=== PATIENT | female | born 1985 | race Caucasian/White ===

== ENCOUNTER 2016-12-31 01:50 | Inpatient (IN) | payer OTHER ==
[~2016-12-31] VITALS: Ht 180.3 cm; Wt 138.3 kg
[~2016-12-31 01:50] MED LIST: CITA20TA11 PO; Docusate Sodium PO; HYDR-4003 PO; IBUP-1827 PO; IBUP800T28 PO; ONDA4TAB12 PO; OXYC1TAB24 PO; PNV1TABL57 PO
[2016-12-31] MEDS ORDERED: Sodium Chloride LOK Flush 10 mL Syringe IVFLUSH PRN (19:10)
[2016-12-31] MEDS ORDERED: Hemorrhage Kit, Post Partum XX ONE (19:10)
[2016-12-31] MEDS ORDERED: Carboprost 250 mCg/mL Inj IM PRN (19:10)
[2016-12-31] MEDS ORDERED: Ondansetron 2 mg/mL 2 mL Inj IVPUSH PRN (19:10)
[2016-12-31] MEDS ORDERED: Methylergonovine 0.2 mg/mL Inj IM PRN (19:10)
[2016-12-31] MEDS ORDERED: Oxytocin 10 Unit/mL Inj IM PRN (19:10)
[2016-12-31] MEDS ORDERED: Oxytocin 30 Units/500 mL LR 30 UNITS in IV Premix 1 EACH IV PRN (19:10)
[2016-12-31 19:40] LABS: Mean Corpuscular Hemoglobin 30.3 pg (27.0-35.0); Mean Corpuscular Volume 91.6 fL (81-100)
[2016-12-31] MEDS: Lactated Ringer's 1,000 ML IV PRN (22:29)
[2016-12-31] MEDS: Misoprostol 25 mCg/0.25 Tablet VAGINAL SCH (23:59)
--- NOTE | 2017-01-01 00:02 | HP ---
[address] [address] HISTORY AND PHYSICAL PATIENT: TACO LALA : 1985 MR#: [id number] ADMIT: 12/31/2016 JOB ID: [id number] DATE: 12/31/2016 CHIEF COMPLAINT: Induction of labor. HISTORY OF PRESENT ILLNESS: This is a 31-year-old, G8, P3-0-4-2 female who is presenting at 37 weeks gestational age for a planned induction of labor due to a history of a 37 week demise in her last as well as chronic hypertension. Her was complicated by the history of a 37 week IUFD in November 2015 which was thought to be related to a true knot with a negative workup. Other than this, as well as a failed 1 hour GTT with a normal 3 hour GTT, mild intermittent asthma, morbid obesity with a BMI of 40, and chronic hypertension on labetalol and baby aspirin. She presented on the evening of the for a planned induction of labor. The risks, benefits, and alternatives were discussed with her before this. PAST MEDICAL HISTORY: 1. Hypertension. 2. Mild intermittent asthma. 3. Anemia. PAST SURGICAL HISTORY: She has had a laparoscopic cholecystectomy. OBSTETRICAL HISTORY: She has had four missed abortions and one 37-week demise. She also had two full-term deliveries between 37 and 38 weeks of two male infants that were both large for gestational age, one weighing 8 pounds 8 ounces and the other weighing 9 pounds. SOCIAL HISTORY: She denies any tobacco, alcohol, or drug use. FAMILY HISTORY: Noncontributory. MEDICATIONS: 1. Baby aspirin 81 mg. 2. Labetalol 300 b.i.d. 3. Zofran 4 mg p.o. p.r.n. 4. vitamins. ALLERGIES: She has allergies to: 1. CEPHALEXIN. 2. CAT. 3. MOLD. 4. POLLEN. PHYSICAL EXAMINATION: This evening her blood pressure has been ranging between 130s to 150s over 60s to 80s. She has not had her labetalol this evening. Her heart rate is 83. Her temperature is 36.6. In general, she is awake, alert, oriented, in no acute distress lying comfortably in bed. Her abdomen is soft, nontender, nondistended. It is obese with size greater than dates. Our last growth ultrasound did show EFW of 28th percentile. That was completed on December 23, 2016. Her extremities show no tenderness. Trace lower extremity edema. I am unable to elicit reflexes. She has no clonus on examination. heart tones show 145 baseline, moderate variability, with accelerations present. Tocometry shows uterine irritability and rare contractions. On sterile vaginal exam, she is found to be 2 cm dilated, 50% effaced, and -3 station. On bedside ultrasound she is vertex. LABORATORY DATA: Her blood type is A positive. She is antibody screen negative. She is rubella immune. Varicella immune. Hep B surface antigen negative, RPR nonreactive, HIV negative, and GBS negative. Her white count at the time of admission is 10.7, her hemoglobin is 11.5, her platelets are 288. Her creatinine is 0.35, and her AST is 10 and ALT of 13. Her labs are otherwise within normal limits. ASSESSMENT AND PLAN: 1. This is a 31-year-old, G9, P3-0-4-2 female presenting at 37 weeks gestation for a planned induction of labor due to a history of a 37 week demise in her last as well as chronic hypertension. PLAN: Chronic hypertension. At this point in time, her blood pressures are mildly elevated. She will get her evening dose of labetalol. Her laboratory data that was collected on labor and delivery is within normal limits. We will continue to follow her, and if she does have severe range blood pressures, need for magnesium will be discussed further at that time. 2. Induction of labor. Her Vernon score this evening is 5. She is vertex in position. She is GBS negative. Given her nonfavorable cervix, induction will be started using Cytotec and when favorable this will be switched to Pitocin. Induction of labor consent has been signed with the patient on labor and delivery and all questions and concerns were answered.
[2017-01-01] MEDS: Lactated Ringer's 1,000 ML IV PRN ×3 (04:18→17:29)
[2017-01-01] MEDS ORDERED: Oxytocin 30 Units/500 mL LR Premix IV SCH (04:50)
[2017-01-01] MEDS: Misoprostol 25 mCg/0.25 Tablet VAGINAL SCH (08:16)
[2017-01-01] MEDS ORDERED: Lactated Ringer's 1,000 ML IV SCH (21:44)
[2017-01-01] MEDS ORDERED: Lactated Ringer's 500 ML IV ONE (21:44)
[2017-01-01] MEDS ORDERED: EPHEDrine Sulfate 50 mg/mL Inj IVPUSH PRN (21:45)
[2017-01-01] MEDS ORDERED: fentaNYL 2 mCg/mL-Bupiv 0.125% 100 ML EPIDURAL SCH (21:45)
[2017-01-01] MEDS ORDERED: Ondansetron 2 mg/mL 2 mL Inj IVPUSH PRN (21:45)
[2017-01-01] MEDS ORDERED: Atropine 1 mg/10 mL (Code) Syringe IVPUSH PRN (21:45)
--- NOTE | 2017-01-01 23:16 | PCM.HPANE ---
Patient Data Date of Service: January 01, 2017 (9) Surgeon Admitting Provider:Jessica Mcclain MD Attending Provider:Jessica Mcclain MD Primary Care Physician:Lyubov Harden MD Other Provider: Reason for Visit Induction INDUCTION Ht/WT & BMI Body Mass Index Allergies Coded Allergies: Cephalexin Monohydrate (Verified Allergy, Intermediate, RASH, 07/21/16) Past Anesthesia History Anesthesia History: Denies:: Abnormal Airway, Difficult Intubation Diabetes History Hx Diabetes?: No MRSA MRSA: No Medications Active Scripts Ondansetron ODT 4 Mg Tab.rapdis4 Mg PO QID PRN For Nausea #20 TABLET Prov:Tremaine Fontana MD 02/15/16 oxyCODONE-Acetaminophen 5-325 mg 1 Each Tablet1 Tab PO Q6H PRN For Pain #30 TABLET Ref 0 Prov:Tremaine Fontana MD 02/15/16 Citalopram 20 Mg [id number] Mg PO DAILY #60 TABLET Ref 6 Prov:Stu Day MD 11/20/15 Ibuprofen 600 Mg [id number] Mg PO Q6H PRN For Mild Pain #30 TABLET Ref 1 Prov:Stu Day MD 11/20/15 [Docusate Sodium] 100 MG CAPSULE No Conflict Slern506 Mg PO BID PRN For Constipation #28 CAPSULE Ref 1 Prov:Stu Day MD 11/20/15 Ibuprofen 800 Mg Rbttta529 Mg PO Q6 PRN For Pain #30 TABLET Prov:Sasha Whittaker MD 12/08/13 Hydrocodone-Acetaminophen 5-325 mg 1 Tab Tablet1-2 Tab PO Q4-6H PRN For Pain # 15 TABLET Prov:Sasha Whittaker MD 12/08/13 Reported Medications PNV CMB#95/FERROUS FUMARATE/FA-Expunged Drug, (-Expunged Drug, Do Not Renew!)1 Each Tablet1 Each PO DAILY 08/22/12 History History of ENT Problems?: No HEENT History: Denies:: Abnormal Airway Difficult Intubation Denture Type: None Teeth Condition: Within Normal Limits Hx of Heart Problems?: No Cardiovascular History: Denies:: AICD Abdominal Aortic Aneurism Atrial Fibrillation Cardiac Surgery Chest Pain Congestive Heart Failure Coronary Artery Disease Edema Heart Murmur Hypertension Irregular Heartbeat Pacemaker Peripheral Vascular Rheumatic Fever Thrombophlebitis Valvular Heart Disease Hx of Respiratory Problem?: No Respiratory History: Denies:: Asthma COPD Chest Surgery Cough Dyspnea Emphysema Hemoptysis Oxygen Administration Pneumonia Pulmonary Embolism Tuberculosis Use of C-PAP Machine Use of Inhalers / NEBS Hx Neurologic Problems?: No Hx of GI Problems?: No Hx of Problems?: No HX of Peritoneal Dialysis: No Female Hx: Positive for:: Currently Hx Musculoskeletal Problems?: No Hx of Psycho/Social Problems?: No Hx Surgeries?: Yes (cholecystectomy) Hx Any Other Health Problems?: Yes Hx Diabetes: No Smoking Status: Never Smoker Stop/Bang Risk Assessment Category Category 1A: Patient has history of documented sleep apnea, and HAS NOT received any narcotic, sedative or anesthesia administration during this stay. Category 1B: Patient has history of documented sleep apnea, and HAS received any narcotic , sedative or anesthesia administration during this stay Category 2: Patient has SUSPECTED Obstructive Sleep Apnea, and HAS received any narcotic , sedative or anesthesia administration during this stay. Category 3: Patient has SUSPECTED Obstructive Sleep Apnea and HAS NOT received narcotic, sedative or anesthesia administration during this stay. Category 4: Outpatient in Procedural Areas with known sleep apnea or who screen positive for High Risk via the STOP/BANG questionnaire. Exam Exam General Appearance: Alert, Oriented X3, Cooperative, No Acute Distress HEENT/AIRWAY: MP 2 Lungs: Clear to Auscultation Heart: Exam Unremarkable Meds/Labs/Diagnostics Admission Meds Current Medications Oxytocin/Lactated Ringer's/Premix (Pitocin 30 Units/500 mL LR/ IV Premix) 500 ml @ 0 mls/hr Q0M IV Last administered on 01/01/17 05:59; Start 01/01/17 at 04 :50 Dinoprostone (Cervidil Vaginal Insert) 10 mg ONCE ONCE VAGINAL Last administered on 01/01/17 20:01; Start 01/01/17 at 19:40; Stop 01/01/17 at 19:42 ; Status DC Labs Test 12/31/16 19:30 12/31/16 19:36 12/31/16 20:14 White Blood Count 10.7th/mm3 (3.8-10.1) Red Blood Count 3.80mil/mm3 (3.90-5.20) Hemoglobin 11.5g/dL (12.0-15.6) Hematocrit 34.8% (35.0-46.0) Mean Corpuscular Volume 91.6fL (81-100) Mean Corpuscular Hemoglobin 30.3pg (27.0-35.0) Mean Corpuscular Hemoglobin Concent 33.0% (32.0-37.0) Red Cell Distribution Width 12.9% (12.3-15.4) Platelet Count 288bil/L (150-400) Sodium Level 134mEq/L (134-144) Potassium Level 3.9mEq/L (3.5-5.2) Chloride Level 96mEq/L (97-108) Carbon Dioxide Level 22mmol/L (18-29) Blood Urea Nitrogen 9mg/dL (6-20) Creatinine 0.35mg/dL (0.57-1.00) Estimat Glomerular Filtration Rate 311mL/min (>59) Glucose Level 91mg/dL (60-99) Calcium Level 8.6mg/dL (8.5-10.1) Total Bilirubin 0.2mg/dL (0.0-1.2) Aspartate Amino Transf (AST/SGOT) 10U/L (0-50) Alanine Aminotransferase (ALT/SGPT) 13U/L (0-32) Alkaline Phosphatase 67U/L (25-150) Total Protein 6.0g/dL (6.4-8.4) Albumin 3.3g/dL (3.4-5.0) Hold Urine Received (Received) Plan Impression Patient chart reviewed, patient interviewed and anesthestic plan with risks, benefits, and alternatives discussed, and informed consent obtained. ASA Physical Status: ASA3 Severe Disease Anesthetic Plan: Epidural Bene/Risks/Altern/Consents: Yes HP Complete Prior to Induction: Yes Girma Chahal MD January 01, 2017 23:16
[2017-01-02] MEDS ORDERED: Sodium Chloride LOK Flush 10 mL Syringe IVFLUSH SCH (00:30)
[2017-01-02] MEDS ORDERED: Witch Hazel-Glycerin Pads TOPICAL PRN (04:10)
[2017-01-02] MEDS ORDERED: Methylergonovine 0.2 mg/mL Inj IM PRN (04:10)
[2017-01-02] MEDS ORDERED: LANOlin HPA 7 Gm Ointment TOPICAL PRN (04:10)
[2017-01-02] MEDS ORDERED: Lactated Ringer's 1,000 ML IV SCH (04:10)
[2017-01-02] MEDS ORDERED: Carboprost 250 mCg/mL Inj IM PRN (04:10)
[2017-01-02] MEDS ORDERED: Benzocaine (Dermoplast) 20% 60 Gm Spray TOPICAL PRN (04:10)
[2017-01-02] MEDS ORDERED: Oxytocin 10 Unit/mL Inj IM PRN (04:10)
[2017-01-02] MEDS ORDERED: Hemorrhage Kit, Post Partum XX ONE (04:10)
[2017-01-02] MEDS ORDERED: Oxytocin 30 Units/500 mL LR 30 UNITS in IV Premix 1 EACH IV PRN (04:10)
[2017-01-02] MEDS ORDERED: diphenhydrAMINE 25 mg Capsule PO PRN (06:30)
--- NOTE | 2017-01-02 08:53 | PROG NOTE ---
[address] [address] PROGRESS NOTE PATIENT: TACO LALA : 1985 MR#: [id number] ADMIT: 12/31/2016 JOB ID: [id number] DATE: 01/01/2017 SUBJECTIVE: 31-years old 8 para 3-0-4-[address] Harden at 36 weeks 2 days gestational age ( by six weeks and [address] [facility] with a final due date of January 27, 2017 ) for induction of labor secondary to: 1. History of IUFD at 37 weeks. M consult recommended induction of labor at 36-37 weeks. 2. Chronic hypertension currently controlled with labetalol 300 mg b.i.d. The patient had her induction started as the following: Cytotec #1 at 0003 this a.m. followed by Pitocin at 6:10 a.m. Pitocin was then discontinued at 7:07 a.m. This was followed by Cytotec #2 at 8:14 a.m. Then Pitocin was restarted at 1357 today and was discontinued at 1716 for a category 2 heart tracing. Category 1 heart tracing was restored with position changes, oxygen, and IV hydration. heart tracing currently is at the baseline of 125 beats per minute, positive accelerations, no decelerations, moderate variability, category 1 heart tracing. Vital signs are 140/78 for blood pressure. Respirations are 18, pulse is 77, temperature 36.8 degrees centigrade. Cervical examination 3 cm dilated, cervix 50% effaced, -5 station, vertex presentation, mid position, medium consistency with a Vernon score of 5. Intrauterine pressure catheter and scalp electrode are in place. Discussed with the patient options of further cervical ripening considering that her Vernon score is 5 versus restarting Pitocin and observing tracing closely for any recurrence of category 2 heart tracing. The patient preferred to proceed with further cervical ripening with Cervidil as she had good experience with prior induction of labor with Cervidil. Cervidil #1 was inserted at 8 p.m. by myself. ASSESSMENT AND PLAN: The patient is a 31-year-old 8, para 3-0-4-2 at 36 weeks 2 days gestational age by 6 week and 3 days ultrasound. 1. continue with induction of labor. Cervidil #1 inserted at 8 p.m. 2. Category 1 heart tracing restored, continue internal monitoring. 3. GBS cultures negative. 4. Discussed intrapartum analgesia options. The patient is considering epidural. Anesthesia notified. 5. Chronic hypertension. Continue with labetalol 300 b.i.d. All the above discussed in details with the patient who agreed to the plan. ANTONIA
[2017-01-02] MEDS: Ascorbic Acid 500 mg Tablet PO SCH ×2 (09:07→19:01)
--- NOTE | 2017-01-02 15:57 | OP ---
[address] [address] OPERATIVE REPORT PATIENT: TACO LALA : 1985 MR#: [id number] ADMIT: 12/31/2016 JOB ID: [id number] DATE OF SURGERY: 01/02/2017 DELIVERY NOTE: PREOPERATIVE DIAGNOSIS(ES): A 31-year-old, 8, para 3-0-4-2, at 36 weeks and 3 days gestational age by six-week ultrasound, 1- admitted for induction of labor by Dr. Harden for history of prior IUFD at 37 weeks. Induction was recommended by [facility]. 2- Category 2 heart tracing was managed with intrauterine resuscitation measures including amnio infusion. Patien progressed to fully dilated, +3 station. POSTOPERATIVE DIAGNOSIS(ES): A 31-year-old, 8, para 3-0-4-2, at 36 weeks and 3 days gestational age by six-week ultrasound, 1- admitted for induction of labor by Dr. Harden for history of prior IUFD at 37 weeks. Induction was recommended by [facility]. 2- Category 2 heart tracing was managed with intrauterine resuscitation measures including amnio infusion. Patien progressed to fully dilated, +3 station. PROCEDURE: Spontaneous vaginal delivery. SURGEON: Jonathan Loza MD. ANESTHESIA: Epidural. ESTIMATED BLOOD LOSS: 200 cc. COMPLICATIONS: None. FINDINGS: Single viable male with Apgars 6/8/9. Weight still pending. Estimated blood loss 200 cc. PROCEDURE: The patient started to push efficiently. head delivered in left occiput anterior position followed by shoulders and rest of the body. Delayed cord clamping allowed for 60 seconds. Infant placed over mom's chest. cord clamped and cut. Placenta followed spontaneously. Upon inspection, it was noted to be intact with three-vessel cord centrally inserted. Inspection of the perineum revealed no lacerations, intact perineum. Bimanual exam at the end of the procedure confirmed firm uterine fundus with no blood clots or active bleeding observed. Patient tolerated the procedure well. Mom and baby recovering in a stable condition in labor and delivery room. Dr. Loza was present and scrubbed for the entire procedure. [facility] MED[facility] CENTERChristiano
[2017-01-02] MEDS: oxyCODONE-Acetamin 5-325 mg Tablet PO PRN (16:59)
[2017-01-03 07:18] LABS: Mean Corpuscular Hemoglobin 30.6 pg (27.0-35.0); Mean Corpuscular Volume 93.6 fL (81-100)
[2017-01-03] MEDS: Ascorbic Acid 500 mg Tablet PO SCH (07:59)
--- NOTE | 2017-01-03 09:32 | PCM.DIOB ---
Obstetrical Disch Instruction Date of Service: January 03, 2017 Dates of Hospitalization Date of Hospital Admission December 31, 2016 at 19:00 Providers Admitting Physician: Jessica Mcclain MD Primary Care Physician: Lyubov Harden MD Attending Physician: Jessica Mcclain MD Discharge Diagnosis Discharge Diagnosis vaginal delivery PPD1 Problems: Diet Discharge Diet: No restrictions Activity Discharge Activity-General: Pelvic Rest for 6 weeks, Try not to overdue, Be up and about, Balance rest and activity, No lifting >15 pounds for 2 weeks Dressing and Incisional Care Hygiene: May shower, NO bathtub, hot tub or whirlpool Additional Instructions Discharge Instructions Please call office if heavy vaginal bleeding, severe abdominal pain, foul smelling discharge, fever more than 100.4 or short of breath. Follow Up Plan Follow Up Plan 6 weeks at [facility] Follow-up appointment: Weeks (6) Call your provider for: Fever or Chills, Shortness of breath, Heavy vaginal bleeding, Excessive constipation, Vaginal discomfort, Red painful breasts Kathrin Castaneda MD January 03, 2017 09:32
[2017-01-03] MEDS ORDERED: IBUP-1827 PO (09:33)
[2017-01-03] MEDS: oxyCODONE-Acetamin 5-325 mg Tablet PO PRN (10:35)
[2017-01-03 14:09] VITALS: BP 107/52; PULSE 87; RESP 18
--- NOTE | 2017-01-05 07:47 | DIS ---
[address] [address] DISCHARGE SUMMARY PATIENT: TACO LALA : 1985 MR#: [id number] ADMIT: 12/31/2016 JOB ID: [id number] DIS: 01/03/2017 HOSPITAL COURSE: This is a 31-year-old female. s/p vaginal delivery. This is day one. She is doing well. Her pain is well controlled by p.o. medications. Voiding well. Ambulating well. Tolerated her regular diet. She is afebrile. Her pulse was in normal range. Blood pressure in normal range. Cardiac: RRR. No murmur. Pulmonary: Bilaterally clear. Abdomen is soft. Uterus: Well contracted, nontender. Extremities nontender. Lochia moderate to minimal. ASSESSMENT AND PLAN: A 31-year-old female, status post vaginal delivery. day one, doing well. Plan to discharge her home today. Instructions given that if there is heavy vaginal bleeding, severe abdominal pain, foul-smelling discharge, fever more than 100.4, she needs to call office or go to the emergency department for evaluation. She is instructed to come back to office for followup in six weeks. Motrin 600 mg, 30 pills given for pain management. MTDD
--- NOTE | 2017-01-05 15:19 | PATH ---
SURGICAL PATHOLOGY Attending Physician:Jonathan Loza MD CASE STATUS: Signed Out PATIENT NAME: TACO LALA PID: [id number] : 1985 DATE COLLECTED:01/02/2017 16:41 SPECIMEN: Placenta CLINICAL HISTORY: 1. PLACENTA FINAL DIAGNOSIS: 1.PLACENTA (246 GRAMS): MATURE CIRCUMVALLATE PLACENTA WITH NO EVIDENCE OF CHORIOAMNIONITIS OR FUNISITIS. ICD10 O43.119 GROSS DESCRIPTION: The specimen is received in formalin, labeled with the patient's name and consists of an intact circumvallate placenta and includes placental disc (246 g, 14.2 x 13.0 x 2.1 cm), umbilical cord (length-20.8 cm, diameter-1.5 x 0.8 cm) and membranes. The membranes are ruptured 3.8 cm from the free edge of the placenta and are semi-translucent. The umbilical cord is attached 5.2 cm from the edge of the placenta and contains 3 vessels. The surface is smooth and shiny with no evidence of meconium. The maternal surface is dark maroon with normal cotyledon formation. The placental disc is spongy with no hematomas, infarcts, nodules, masses, or lesions. Section code: (A) edge of placenta with membranes, umbilical cord; (B-D) placenta, 4 full thickness sections. 01/03/17 MICRO DESCRIPTION: See diagnosis. ICD-9 CODES: CPT CODES: 1: 68803 Electronically Signed Out Calvin Gordon MD [facility] Pathology [facility] [address], [place] [address] Technical component performed at [facility], [facility] [address], [place], [address]
== END 2017-01-03 14:34 | disposition home or self-care (01) | DRG 774 ==
LOC: FBC 19:00
PROVIDERS: ADMIT Obstetrics & Gynecology; ATTEND Obstetrics & Gynecology
PROC: 3E033VJ Introduction of Other Hormone into Peripheral Vein, Percutaneous Approach (ICD-10-PCS; 2017-01-01)
PROC: 3E0E7GC Introduction of Other Therapeutic Substance into Products of Conception, Via Natural or Artificial Opening (ICD-10-PCS; 2017-01-01)
PROC: 10E0XZZ Delivery of Products of Conception, External Approach (ICD-10-PCS; principal; 2017-01-02)
PROC: 10907ZC Drainage of Amniotic Fluid, Therapeutic from Products of Conception, Via Natural or Artificial Opening (ICD-10-PCS; 2017-01-02)
DX: O10.02 Pre-existing essential hypertension complicating childbirth (principal); Z3A.36 36 weeks gestation of pregnancy; O76 Abnormality in fetal heart rate and rhythm complicating labor and delivery; Z37.0 Single live birth

== ENCOUNTER 2017-04-03 05:55 | Day surgery (SDC) | payer OTHER ==
[2017-04-03] VITALS (12 sets, daily range): BP systolic 109–145; BP diastolic 57–85; PULSE 58–91; RESP 8–18; O2SAT 93–99
[~2017-04-03] VITALS: Ht 175.3 cm; Wt 129.7 kg
[~2017-04-03 05:55] MED LIST changes: -CITA20TA11 PO; -Docusate Sodium PO; -HYDR-4003 PO; -IBUP-1827 PO; -IBUP800T28 PO; +LABE300T PO; -ONDA4TAB12 PO; +[UNRECOGNIZED DRUG - OTHER] PO
[2017-04-03] MEDS ORDERED: Propofol 10,000 mCg/mL 20 mL Inj ONE (05:56)
[2017-04-03] MEDS ORDERED: Glycopyrrolate 0.2 MG/ML 1mL Inj ONE (05:56)
[2017-04-03] MEDS ORDERED: Succinylcholine Chloride 20 mg/mL 5 mL Inj ONE (05:56)
[2017-04-03] MEDS ORDERED: fentaNYL-PF 50 mCg/mL 2 mL Inj ONE (05:56)
[2017-04-03] MEDS ORDERED: Ondansetron 2 mg/mL 2 mL Inj ONE (05:56)
[2017-04-03] MEDS ORDERED: Rocuronium 10 mg/mL 5 mL Inj ONE (05:56)
[2017-04-03] MEDS ORDERED: Neostigmine 1 mg/mL 10 mL Inj ONE (05:56)
[2017-04-03] MEDS ORDERED: Dexamethasone 4 mg/mL Inj ONE (05:56)
[2017-04-03] MEDS: Lactated Ringer's 1,000 ML IV SCH ×2 (06:05→07:32)
[2017-04-03] MEDS ORDERED: PREN-54 PO (06:52)
[2017-04-03] MEDS ORDERED: IBUP200C PO (06:52)
[2017-04-03] MEDS ORDERED: MEDR150D9 IM (06:52)
[2017-04-03] MEDS ORDERED: LACT1CAP64 PO (06:52)
[2017-04-03] MEDS ORDERED: ONDA4TAB6 PO (06:52)
--- NOTE | 2017-04-03 06:58 | PCM.HPANE ---
Patient Data Date of Service: Apr 03, 2017 Surgeon Admitting Provider: Attending Provider:Jessica Mcclain MD Primary Care Physician:Ritchie Liz MD Other Provider:Madyson Saeed Anesthesia Reason for Visit Family Planning Ht/WT & BMI Height (Feet): 5 Height (Inches): 9.00 Weight (Kilograms): 129.700 Body Mass Index 42.00 Allergies Coded Allergies: amoxicillin (Verified Allergy, Severe, Thrush of mouth, 04/01/17) animal dander (Verified Allergy, Severe, Bad respiratory reaction, 04/01/17 ) Cephalexin Monohydrate (Verified Allergy, Intermediate, RASH, 04/01/17) Past Anesthesia History Anesthesia History: Denies:: Abnormal Airway, Anesthesia Reactions, Difficult Intubation, Fam Anesthesia Reaction, Fam Malignant Hypertherm, Malignant Hyperthermia Diabetes History Hx Diabetes?: No MRSA MRSA: No Medications Hypertension Medication: Yes Home Meds Incl Beta Charlene: Yes Date Beta Charlene Taken: Apr 03, 2017 Time Beta Charlene Taken: 0500 Active Scripts oxyCODONE-Acetaminophen 5-325 mg 1 Each Tablet1 Tab PO Q6H PRN For Pain #30 TABLET Ref 0 Prov:Tremaine Fontana MD 02/15/16 Reported Medications Ibuprofen 200 Mg Akyftgg182 Mg PO QID PRN For Pain Ref 0 04/03/17 Lactobacillus Rhamnosus R0011 (Probiotic Digestive Care)1 Each Capsule1 Each PO 04/03/17 Ondansetron (Zofran)4 Mg Tablet4 Mg PO Q4H PRN For Nausea 04/03/17 Medroxyprogesterone Acetate (Depo-Provera)150 Mg/1 Ml Knzsacu177 Mg IM [id number] 04/03/17 Vit #76/Iron,Carb/FA (Prenatabs Rx Tablet)1 Each Tablet1 Each PO 04/03/17 Labetalol 300 Mg Ettbqb045 Mg PO BID 04/01/17 Discontinued Reported Medications [samotidine] No Conflict Check20 Mg PO DAILY 04/01/17 PNV CMB#95/FERROUS FUMARATE/FA-Expunged Drug, (-Expunged Drug, Do Not Renew!)1 Each Tablet1 Each PO DAILY 08/22/12 Discontinued Scripts Ibuprofen 600 Mg Auvxyq657 Mg PO Q6H PRN For Mild Pain #30 TABLET Prov:Kathrin Castaneda MD 5/20/17 Ondansetron ODT 4 Mg Tab.rapdis4 Mg PO QID PRN For Nausea #20 TABLET Prov:Tremaine Fontana MD 02/15/16 Citalopram 20 Mg Rnjqnl40 Mg PO DAILY #60 TABLET Ref 6 Prov:Stu Day MD 11/20/15 Ibuprofen 600 Mg Wgadlk198 Mg PO Q6H PRN For Mild Pain #30 TABLET Ref 1 Prov:Stu Day MD 11/20/15 [Docusate Sodium] 100 MG CAPSULE No Conflict Frgqy368 Mg PO BID PRN For Constipation #28 CAPSULE Ref 1 Prov:Stu Day MD 11/20/15 Ibuprofen 800 Mg Wdrlti424 Mg PO Q6 PRN For Pain #30 TABLET Prov:Sasha Whittaker MD 12/08/13 Hydrocodone-Acetaminophen 5-325 mg 1 Tab Tablet1-2 Tab PO Q4-6H PRN For Pain # 15 TABLET Prov:Sasha Whittaker MD 12/08/13 History History of ENT Problems?: Yes HEENT History: Positive for:: Sinus Problem (related to allergy's) Denies:: Abnormal Airway Difficult Intubation Dysphagia Hearing Problem TMJ Denture Type: None Teeth Condition: Within Normal Limits Hx of Heart Problems?: Yes Cardiovascular History: Positive for:: Hypertension Denies:: AICD Abdominal Aortic Aneurism Atrial Fibrillation Cardiac Surgery Chest Pain Congestive Heart Failure Edema Heart Murmur Irregular Heartbeat Pacemaker Rheumatic Fever Thrombophlebitis Valvular Heart Disease Hx of Respiratory Problem?: No Respiratory History: Denies:: Asthma COPD Chest Surgery Cough Dyspnea Emphysema Hemoptysis Oxygen Administration Pneumonia Pulmonary Embolism Tuberculosis Use of C-PAP Machine Hx Neurologic Problems?: No Neurological History: Denies:: Alzheimer's Disease CVA Dementia Dizziness Headaches Multiple Sclerosis Parkinson's Disease Seizures TIA Hx of GI Problems?: No Hx of Problems?: No Genitourinary History: Denies:: HX of Hemodialysis Kidney Stones Urinary Tract Infection HX of Peritoneal Dialysis: No Female Hx: Denies:: Currently Problems with Breasts? Skin History: Denies:: History Skin Disorders? Pressure Ulcers Hx Musculoskeletal Problems?: No Musculoskeletal History: Positive for:: Back Injury (bulged disc lower back Chiropractic treatment) Denies:: Degenerative Joint Joint Replacement Musculoskeletal Trauma Osteoarthritis Rheumatoid Arthritis Systemic Lupus Hx of Psycho/Social Problems?: No Hx Surgeries?: Yes (cholecystectomy - [place], no complications/adverse reactions) Hx Any Other Health Problems?: Yes Other History: Positive for:: Hospitalization (January 2016 Pancreatitis) Denies:: Cancer Endocrine Disease Thyroid Disease History Blood Transfusions: Positive for:: Accept Blood Products? Denies:: Blood Transfusions Hx Diabetes: No Hx Alcohol Use: YesAlcoholic Drinks Per Day: 1-2 Cocktail once a weekHx Substance Use: No Smoking Status: Never Smoker Stop/Bang Treated for Sleep Apnea?: No Do You Have a CPAP Machine?: No S-Snoring: Do You Snore Loudly: No T-Tired: feel tired, fatigued: No O-Obsered: Observed not breath: No P-Blood Pressure: treated: Yes B- Body Mass Index > 35 kg/m2: No A- Age over 50: No N- Neck Large Circumference: No G- Gender Male: No TRACY Total Score: 1 TRACY Risk Assessment: Low Risk, <3 Yes Risk Assessment Category Category 1A: Patient has history of documented sleep apnea, and HAS NOT received any narcotic, sedative or anesthesia administration during this stay. Category 1B: Patient has history of documented sleep apnea, and HAS received any narcotic , sedative or anesthesia administration during this stay Category 2: Patient has SUSPECTED Obstructive Sleep Apnea, and HAS received any narcotic , sedative or anesthesia administration during this stay. Category 3: Patient has SUSPECTED Obstructive Sleep Apnea and HAS NOT received narcotic, sedative or anesthesia administration during this stay. Category 4: Outpatient in Procedural Areas with known sleep apnea or who screen positive for High Risk via the STOP/BANG questionnaire. Exam Exam Vital Signs Vital Signs Date Time Temp Pulse Resp B/P Pulse Ox O2 Delivery O2 Flow Rate FiO2 04/03/17 06:39 36.1 91 12 121/76 98 Room Air 04/03/17 06:23 36.1 91 12 121/76 98 Room Air General Appearance: Alert, Oriented X3, Cooperative, No Acute Distress HEENT/AIRWAY: MP 1 Lungs: Clear to Auscultation Heart: Regular Rate/Rhythm, No Murmurs/Rubs/Gallops Meds/Labs/Diagnostics Admission Meds Current Medications Lactated Ringer's (Lr) 1,000 ml @ 120 mls/hr Q8H20M IV Last administered on t 06:05; Start 04/03/17 at 05:00; Stop 04/03/17 at 13:19 Plan Impression Patient chart reviewed, patient interviewed and anesthestic plan with risks, benefits, and alternatives discussed, and informed consent obtained. ASA Physical Status: ASA2 Mod Systemic Disease Anesthetic Plan: GA Bene/Risks/Altern/Consents: Yes HP Complete Prior to Induction: Yes Bill Sarah DO Apr 03, 2017 06:58
[2017-04-03] MEDS ORDERED: Lactated Ringer's 1,000 ML IV SCH (07:23)
[2017-04-03] MEDS ORDERED: Lactated Ringer's 500 ML IV PRN (07:23)
[2017-04-03] MEDS ORDERED: Ondansetron 2 mg/mL 2 mL Inj IVPUSH PRN ×2 (07:25→09:00)
[2017-04-03] MEDS ORDERED: Dexamethasone 4 mg/mL Inj IVPUSH PRN (07:25)
[2017-04-03] MEDS ORDERED: Phenylephrine 10,000 mCg/mL Inj IVPUSH PRN (07:25)
[2017-04-03] MEDS ORDERED: EPHEDrine Sulfate 50 mg/mL Inj IVPUSH PRN (07:25)
[2017-04-03] MEDS ORDERED: MetoCLOpramide 5 mg/mL 2 mL Inj IVPUSH PRN ×2 (07:25→09:00)
[2017-04-03] MEDS ORDERED: Bupivacaine-MPF 0.5% W/EPI 30 mL Inj INJ ONE (08:19)
[2017-04-03] MEDS ORDERED: oxyCODONE-Acetamin 5-325 mg Tablet PO PRN (09:00)
[2017-04-03] MEDS ORDERED: HYDROmorphone 1 mg/mL Inj IVPUSH PRN (09:00)
--- NOTE | 2017-04-03 09:05 | PCM.DIGYN ---
Surgical Discharge Instruction Dates of Hospitalization Date of Hospital Admission 04/03/2017 Providers Admitting Physician: Primary Care Physician: Ritchie Liz MD Attending Physician: Jessica Mcclain MD Diagnosis at Time of Discharge Diagnosis at time of discharge Sterilization Post-operative diagnosis Sterilization Problems: (1) Encounter for female sterilization procedure Plan: Discharge home when awake and stable. Follow up in 2 weeks for a routine postoperative visit. Status: Acute ICD Code: Z30.2 Diet Discharge Diet: No restrictions Activity Discharge Activity-General: Try not to overdue, Be up and about, Restrict lifting to no greater than (10lbs for two weeks) Dressing and Incisional Care Hygiene: May shower, Wash incision with soap & water, DO NOT soak incision under water Follow Up Plan Follow-up appointment: Weeks (2) Call your provider for: Fever, Chills, Shortness of breath, Drainage at incision, Increasing pain Additional Information You may expect some vaginal bleeding or spotting after your procedure today due to instruments placed on your cervix to help mobilize your uterus during the procedure. Jessica Mcclain MD Apr 03, 2017 09:05
[2017-04-03] MEDS: HYDROmorphone 1 mg/mL Inj IVPUSH PRN ×2 (09:13→09:18)
[2017-04-03] MEDS: fentaNYL-PF 50 mCg/mL 2 mL Inj IVPUSH PRN ×2 (09:29→09:40)
--- NOTE | 2017-04-03 09:37 | PCM.ANEP1 ---
Post Anesthesia PACU Phase 1 Assessment Date of Service: Apr 03, 2017 Vital Signs Vital Signs Date Time Temp Pulse Resp B/P Pulse Ox O2 Delivery O2 Flow Rate FiO2 04/03/17 09:30 62 8 135/83 96 Room Air 04/03/17 09:15 36.1 59 11 130/75 98 Room Air 04/03/17 09:10 58 10 138/76 98 Room Air 04/03/17 09:05 61 13 121/72 97 Room Air 04/03/17 09:00 67 12 127/63 95 Room Air 04/03/17 08:55 72 18 109/57 94 Room Air 04/03/17 08:52 36.8 70 9 118/61 93 Room Air 04/03/17 06:39 36.1 91 12 121/76 98 Room Air 04/03/17 06:23 36.1 91 12 121/76 98 Room Air Anesthetic Administered: GA Level of Alertness: Awake, talking CASIANO's with Equal Strength: Yes Pain: Yes Nausea or Vomiting: No CV Function & Hydration Stable: Yes Airway Device: Oxygen Delivery: Room Air Lungs: Clear to Auscultation PACU Phase 2 Assessment Complications: No Follow up Care: N/A Patient Instructions Provided: N/A Bill Sarah DO Apr 03, 2017 09:37
--- NOTE | 2017-04-03 09:42 | OP ---
[address] [address] OPERATIVE REPORT PATIENT: TACO LALA : 1985 MR#: [id number] ADMIT: 04/03/2017 JOB ID: [id number] CORRECTED REPORT: DATE OF SURGERY: 04/03/2017 PREOPERATIVE DIAGNOSIS(ES): Sterilization. POSTOPERATIVE DIAGNOSIS(ES): Sterilization. PROCEDURE PERFORMED: Laparoscopic bilateral tubal ligation using Filshie clips. SURGEON: Jessica Mcclain MD ANESTHESIA: General. ESTIMATED BLOOD LOSS: 1 mL. COMPLICATIONS: None. PATHOLOGY SENT: None. FINDINGS: At the time of surgery, normal appearing uterus, fallopian tubes, and ovaries bilaterally. A survey of the upper abdomen was normal. There was no evidence of any endometriosis and adhesive disease. INDICATION FOR PROCEDURE: The patient is a 31-year-old, 9, para 5-0-4-4 who desires permanent sterilization. She understood the permanence of the procedure. PROCEDURE DESCRIPTION: Patient was taken to the operating room, where her general anesthesia was obtained without difficulty. She was placed in a lithotomy position in the [facility] and prepared and draped in the normal sterile fashion. A bivalve speculum was inserted into the patient's vagina and the cervix identified. A XZERESlka uterine manipulator was inserted without difficulty. Our attention was then turned to the patient's abdomen. The umbilicus was injected with 6 mL of 0.5% Marcaine with epinephrine. A Veress needle was inserted at the base of the patient's umbilicus into the patient's peritoneal cavity. Needle aspirate and water drop tests were confirmatory and negative, respectively. A pneumoperitoneum was obtained with CO2 gas to a pressure of 15 mmHg. An 11 mm skin incision was made at the base of patient's umbilicus and an 11 mm applied balloon trocar was inserted directly into the patient's peritoneal cavity using the Visiport function device. Intraperitoneal placement was confirmed with the laparoscope. Survey of the abdomen and pelvis were noted as above. The uterus was then mobilized. Both tubes were identified followed out to fimbriated end. The Filshie clip applicator was then inserted and a Filshie clip was placed on the right and left fallopian tubes approximately 3 cm from the cornual region. Good clip placement was confirmed. At this point, all instruments were removed from the patient's peritoneal cavity and the pneumoperitoneum was released. The fascia was then reapproximated with a 0-Vicryl suture in a [id number] fashion. Skin was closed with 4-0 Monocryl in a subcuticular fashion. Dermabond applied. The uterine manipulator was removed from the patient's vagina and this completed our procedure. All lap, instrument, and needle counts were correct x2 at the end of procedure. Patient was taken to the recovery room, awake and in good condition. Corrected by DAYAMI 04/08/17 at 2:33pm DOS.
== END 2017-04-03 23:59 | disposition home or self-care (01) ==
LOC: SAS 05:55
PROVIDERS: ATTEND Obstetrics & Gynecology
DX: Z30.2 Encounter for sterilization (principal); I10 Essential (primary) hypertension; E66.01 Morbid (severe) obesity due to excess calories; Z68.41 Body mass index [BMI] 40.0-44.9, adult; Z79.82 Long term (current) use of aspirin
CPT/HCPCS: 58671; J0330; J1100; J1170; J1885; J2175; J2250; J2405; J2704; J2710; J3010; J7120